=== PATIENT | male | born 1985 | race Caucasian/White ===

== ENCOUNTER 2021-08-14 13:06 | Emergency (ER) | payer MEDICAID ==
[~2021-08-14] VITALS: Ht 162.6 cm; Wt 109.0 kg
[2021-08-14] MEDS ORDERED: HYDROCODONE/ACETAMINOPHEN 5/325MG TABLET PO STA (13:22)
[2021-08-14 14:09] VITALS: BP 155/81
[2021-08-14] MEDS ORDERED: LIDOCAINE HCL/PF 1% 10 MG/ML 5ML VIAL INFIL ONE (14:45)
[2021-08-14] MEDS ORDERED: HYDR-4001 PO (16:19)
== END 2021-08-14 16:44 | disposition home or self-care (01) ==
LOC: ER 13:06
DX: S92.242A Displaced fracture of medial cuneiform of left foot, initial encounter for closed fracture (principal); S92.322A Displaced fracture of second metatarsal bone, left foot, initial encounter for closed fracture; W18.30XA Fall on same level, unspecified, initial encounter; Y93.89 Activity, other specified; Y92.89 Other specified places as the place of occurrence of the external cause; Y99.8 Other external cause status
CPT/HCPCS: 29515; 73600; 73610; 73620; 73630; 99284; J3490